=== PATIENT | female | born 2000 | race Hispanic/Latino ===

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

== ENCOUNTER 2025-03-24 02:42 | Emergency (ER) | payer BC ==
[~2025-03-24] VITALS: Ht 157.5 cm; Wt 65.8 kg
[2025-03-24 02:44] VITALS: BP 125/65; PULSE 69; RESP 16; TEMP 98
--- NOTE | 2025-03-24 02:48 | NUR ---
UA CUP PROVIDED
--- NOTE | 2025-03-24 03:10 | ERN ---
ED Note History of Present Illness Stated Complaint: + Chief Complaint: Vaginal Bleeding Time Seen by MD: 02:44 Dictation: The patient is a 24-year-old female who presents to the ER complaining vaginal spotting, stated that she is 8 weeks , and 10 days ago she had a vaginal bleeding and since then she has been having vaginal spotting. Allergies: Coded Allergies: No Known Allergies (Unverified Allergy, Unknown, 03/24/25) Past Medical History Past Medical History: No Pertinent History Surgical History: None LMP: Jan 27, 2025 : 1 Review of System Dictation NEGATIVE EXCEPT PER HPI Constitutional: Negative for fever,chills, and weight loss Eyes: Negative for injury, pain,redness, and discharge ENT: Negative for injury,pain or swelling Cardiovascular: denies chest pain, palpitations, and edema Respiratory: Negative for shortness of breath, cough, and wheezing, Abdomen/GI: Negative for abdominal pain, nausea, vomiting, diarrhea, and constipation Back: Negative for injury and pain : Reports vaginal spotting MS/Extremity: Negative for injury and deformity Skin: Negative for rash, and discoloration Neuro: Negative for headache, weakness, numbness, tingling, and seizure Psych: Negative for suicide ideation, homicidal ideation, and hallucinations Initial Vital Sign VS Vital Signs Date Time Temp Pulse Resp B/P (MAP) Pulse Ox O2 Delivery O2 Flow Rate FiO2 03/24/25 02:44 98.1 69 16 125/65 99 Room Air Physical Exam Dictation General: awake, alert, NAD Head/Face: Normocephalic, atraumatic Eyes: PERRL, EOMI, vision at baseline ENT: oral cavity clear, TMs clear, no signs of infection Neck: Trachea midline, supple, no nuchal rigidity Cardiovascular: RRR, normal S1/S2, No MRGs, no JVD Respiratory: CTAB, no respiratory distress, No rales or wheezes Abdomen: Soft , no tender Skin: Warm, dry, normal turgor, no rash MS/Extremity: Pulses equal, no cyanosis, neurovascular intact, FROM Neuro: COAx4, GCS 15, strength 5/5, CN 2-12 intact, normal cerebellar exam, normal gait, Psych: Normal behavior, mood, and affect normal Results (Laboratory/Radiology) Laboratory/Radiology Laboratory Tests Test 03/24/25 03:13 03/24/25 03:16 White Blood Count 10.2 K/uL (4.8-10.8) Red Blood Count 3.76 MIL/uL (4.00-5.50) L Hemoglobin 9.8 g/dL (12.0-16.0) L Hematocrit 31.5 % (36-48) L Mean Corpuscular Volume 83.8 fL (79-99) Mean Corpuscular Hemoglobin 26.1 pg (27.0-33.0) L Mean Corpuscular Hemoglobin Concent 31.1 g/dL (32.0-36.0) L Red Cell Distribution Width 18.2 % (11.0-15.5) H Platelet Count 433 K/uL (130-400) H Mean Platelet Volume 10.1 fL (7.5-10.5) Immature Granulocyte % (Auto) 0.4 % (0-1) Neutrophils (%) (Auto) 66.9 % (40.0-77.0) Lymphocytes (%) (Auto) 22.2 % (21.0-51.0) Monocytes (%) (Auto) 9.2 % (3.0-13.0) Eosinophils (%) (Auto) 1.0 % (0.0-8.0) Basophils (%) (Auto) 0.3 % (0.0-5.0) Neutrophils # (Auto) 6.8 K/uL (1.8-7.7) Lymphocytes # (Auto) 2.3 K/uL (1.0-4.8) Monocytes # (Auto) 0.9 K/uL (0.1-1.0) Eosinophils # (Auto) 0.10 K/uL (0.00-0.70) Basophils # (Auto) 0.03 K/uL (0.00-0.20) Absolute Immature Granulocyte (auto 0.04 K/uL (0-1) Nucleated Red Blood Cells 0.0 % (0.0-0.19) Red Blood Cell Morphology See comments Sodium Level 137 mmol/L (136-145) Potassium Level 3.8 mmol/L (3.5-5.1) Chloride Level 106 mmol/L (101-111) Carbon Dioxide Level 26 mmol/L (21-32) Blood Urea Nitrogen 14 mg/dL (7-18) Creatinine 0.6 mg/dL (0.5-1.0) Glomerular Filtration Rate Calc 129 mL/min (>90) Random Glucose 91 mg/dL (70-105) Total Calcium 8.5 mg/dL (8.5-10.1) Human Chorionic Gonadotropin, Quant 650456 mIU/mL (0-5) H Urine Color LIGHT-YELLOW (YELLOW) Urine Appearance CLEAR (CLEAR) Urine pH 6.5 (5.0-8.0) Urine Specific [place] 1.026 (1.001-1.031) Urine Protein NEGATIVE mg/dL (NEGATIVE) Urine Glucose (UA) NEGATIVE mg/dL (NEGATIVE) Urine Ketones NEGATIVE mg/dL (NEGATIVE) Urine Occult Blood NEGATIVE (NEGATIVE) Urine Nitrate NEGATIVE (NEGATIVE) Urine Bilirubin NEGATIVE mg/dL (NEGATIVE) Urine Urobilinogen 2.0 mg/dL (0.2-1.0) H Urine Leukocyte Esterase NEGATIVE Angela/uL Urine HCG, Qualitative POSITIVE (NEGATIVE) H ED Course ED Course Orders Procedure Category Date Status Time Urinalysis Profile LAB 03/24/25 Complete 02:53 ,Urine Test LAB 03/24/25 Complete 02:53 Cbc With Differential LAB 03/24/25 Complete 03:07 Basic Metabolic Panel LAB 03/24/25 Complete 03:07 Us Ob Transvaginal US 03/24/25 Resulted 03:07 Hcg,Quantitative LAB 03/24/25 Complete 03:13 Vital Signs Date Time Temp Pulse Resp B/P (MAP) Pulse Ox O2 Delivery O2 Flow Rate FiO2 03/24/25 02:44 98.1 69 16 125/65 99 Room Air Medical Decision Making MDM The patient is a 24-year-old female who presents to the ER complaining vaginal spotting, stated that she is 8 weeks , and 10 days ago she had a vaginal bleeding and since then she has been having vaginal spotting. Possible miscarriage Bleeding during Possible UTI Ordered the UA, test, Transvaginal ultrasound Ultrasound showed a subchorionic bleed, 1.4 x 0.6 x 2.1 cm heart 164 sac 4.3 cm, CRL measurement 1.55 cm Ultrasound age 7 weeks and 6 day EXAM: US Obstetrical, Complete <14 weeks CLINICAL HISTORY: Bleeding during ,8 weeks of TECHNIQUE: Transvaginal and transabdominal imaging of the maternal pelvis and a < 14-week gestation with image documentation. COMPARISON: None provided. FINDINGS: The uterus measures 8.8 x 6.2 x 7.1 cm. There is an intrauterine with a mean sac diameter of 4.3 cm. The CRL measures 1.55 cm, which corresponds with a gestational age of 7 weeks and 6 days 4 days. The heart rate measures 164 bpm. The yolk sac is visualized. The right ovary measures 3 x 1.4 x 2.2 cm. The left ovary measures 2.3 x 1.3 x 1.9 cm. Positive flow in the bilateral ovaries. No ovarian torsion is evident. No free fluid in the cul-de-sac. A small subchorionic bleed is evident, measuring about 1.4 x 0.6 x 2.1 cm. IMPRESSION: Single live intrauterine with a gestational age of 7 weeks and 6 days. A small subchorionic bleed is evident. 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 FOLLOW-UP IN 1-2 DAYS WITH PRIMARY PROVIDER FOR RECHECK OF TODAY'S SYMPTOMS. Referrals: SELF,REFERRAL (PCP) Time of Disposition: 04:31 ALESHA BURTON MD Mar 24, 2025 03:10
[2025-03-24 03:33] LABS: HCG,QUALITATIVE URINE POSITIVE (NEGATIVE)
[2025-03-24 03:35] LABS: ADD UA MICROSCOPIC NO; APPEARANCE,URINE CLEAR (CLEAR); GLUCOSE, URINE (UA) NEGATIVE (NEGATIVE); LEUKOCYTE ESTERASE ,URINE NEGATIVE Leu/uL (NEGATIVE); NITRATE,URINE NEGATIVE (NEGATIVE); OCCULT BLOOD,URINE NEGATIVE (NEGATIVE)
[2025-03-24 03:43] LABS: IMMATURE GRANULOCYTE ABSOLUTE 0.04 K/uL (0-1); NUCLEATED RED BLOOD CELLS 0.0 % (0.0-0.19); PLATELET COUNT (AUTO) 433 K/uL (130-400); RED BLOOD CELL COUNT(AUTO) 3.76 MIL/uL (4.00-5.50); RED CELL DISTRIBUTION WIDTH 18.2 % (11.0-15.5); WHITE BLOOD COUNT (AUTO) 10.2 K/uL (4.8-10.8)
[2025-03-24 03:51] LABS: CREATININE 0.6 mg/dL (0.5-1.0); GLOMERULAR FILTR. RATE CALC 129.0 mL/min (>90); GLUCOSE,RANDOM 91.0 mg/dL (70-105); SODIUM SERUM 137.0 mmol/L (136-145); UREA NITROGEN, BLOOD 14.0 mg/dL (7-18)
--- NOTE | 2025-03-24 04:37 | HMCIMG ---
EXAM: US Obstetrical, Complete <14 weeks CLINICAL HISTORY: Bleeding during ,8 weeks of TECHNIQUE: Transvaginal and transabdominal imaging of the maternal pelvis and a < 14-week gestation with image documentation. COMPARISON: None provided. FINDINGS: The uterus measures 8.8 x 6.2 x 7.1 cm. There is an intrauterine with a mean sac diameter of 4.3 cm. The CRL measures 1.55 cm, which corresponds with a gestational age of 7 weeks and 6 days 4 days. The heart rate measures 164 bpm. The yolk sac is visualized. The right ovary measures 3 x 1.4 x 2.2 cm. The left ovary measures 2.3 x 1.3 x 1.9 cm. Positive flow in the bilateral ovaries. No ovarian torsion is evident. No free fluid in the cul-de-sac. A small subchorionic bleed is evident, measuring about 1.4 x 0.6 x 2.1 cm. IMPRESSION: Single live intrauterine with a gestational age of 7 weeks and 6 days. A small subchorionic bleed is evident. /[place]
== END 2025-03-24 04:46 | disposition home or self-care (01) ==
LOC: EDH 02:42
DX: O20.8 Other hemorrhage in early pregnancy (principal); Z3A.08 8 weeks gestation of pregnancy
CPT/HCPCS: 36415; 76817; 80048; 81003; 81025; 84702; 85025; 99284